=== PATIENT | male | born 1975 | race Caucasian/White ===

== ENCOUNTER 2022-07-29 06:51 | Emergency (ER) | payer BC ==
--- NOTE | 2022-07-29 07:28 | ERPHSYRPT ---
- History of Present Illness Time Seen by Provider: 07/29/22 07:23 Source: patient Exam Limitations: no limitations Physician History: pt had a fall about 3 weeks ago and thinks he may have strained the left groin area , but had no symptoms at that time. Then about a week ago began to note pain and swelling of the left testicle and scrotum. No fever, No abd pain, no u rinary symptoms, no discharge, No N or V. Tender swollen , indurated left scrotum with erythema. Abd soft nontender without peritoneal signs or masses. No palpable nodes. No palpable hernia. Discussed US with pt to rule out torsion and he agrees. Timing/Duration: day(s) Activites at Onset: none Quality: sharpness, throbbing Onset Location: groin, left testicle Pain Radiation: none Severity of Pain-Max: moderate Severity of Pain-Current: moderate Modifying Factors: Improves With: movement, walking Associated Symptoms: denies symptoms, No abdominal pain, No fever, No nausea, No vomiting, No polyuria Prior abdominal problems: none Sexual intercourse history: non-contributory Allergies/Adverse Reactions: No Known Drug Allergies Allergy (Unverified 08/04/16 14:54) Hx Tetanus, Diphtheria Vaccination/Date Given: Yes Hx Influenza Vaccination/Date Given: No Hx Pneumococcal Vaccination/Date Given: No - Past Medical History Pertinent Past Medical History: Yes Neurological History: No Pertinent History ENT History: No Pertinent History Cardiac History: Hypertension Respiratory History: No Pertinent History Endocrine Medical History: No Pertinent History Musculoskeletal History: Arthritis GI Medical History: No Pertinent History History: No Pertinent History Psycho-Social History: No Pertinent History Male Reproductive Disorders: No Pertinent History - Past Surgical History Past Surgical History: Yes Musculoskeletal: Orthopedic Surgery Other Surgical History: RT KNEE SCOPE - Social History Smoking Status: Never smoker Exposure to second hand smoke: Yes Drug Use: none Patient Lives Alone: Yes - Review of Systems Constitutional: No Fever, No Chills Eyes: No Symptoms Ears, Nose, & Throat: No Symptoms Respiratory: No Cough, No Dyspnea Cardiac: No Chest Pain, No Edema, No Syncope Abdominal/Gastrointestinal: No Abdominal Pain, No Nausea, No Vomiting, No Diarrhea Genitourinary Symptoms: Testicle Pain, No Dysuria, No Frequency, No Penile Discharge Musculoskeletal: No Back Pain, No Neck Pain Skin: No Rash Neurological: No Dizziness, No Focal Weakness, No Sensory Changes Psychological: No Symptoms Endocrine: No Symptoms All Other Systems: Reviewed and Negative - Nursing Vital Signs Nursing Vital Signs: Initial Vital Signs Temperature 96.7 F 07/29/22 07:21 Pulse Rate 108 H 07/29/22 07:21 Respiratory Rate 18 07/29/22 07:21 Blood Pressure 138/110 07/29/22 07:21 O2 Sat by Pulse Oximetry 95 07/29/22 07:21 Pain Scale Pain Intensity 2 - Physical Exam General Appearance: no apparent distress, alert Eye Exam: PERRL/EOMI Ears, Nose, Throat Exam: pharynx normal, moist mucous membranes Neck Exam: normal inspection, supple Respiratory Exam: normal breath sounds, lungs clear Cardiovascular Exam: regular rate/rhythm, No edema Gastrointestinal/Abdomen Exam: soft, No tenderness Rectal Exam: deferred Male Genital Exam: no hernia, epididymal tenderness, scrotum tenderness (L), scrotal swellling, No urethral discharge Back Exam: normal inspection, No CVA tenderness Extremity Exam: normal inspection, normal range of motion, No pedal edema Neurologic Exam: alert, oriented x 3, cooperative, sensation nml, No motor deficits Skin Exam: normal color, warm, dry, No rash - Course Nursing assessment & vital signs reviewed: Yes - Radiology Ultrasound Exam Left Scrotal Ultrasound: No Torsion/Nml Flow, Other (Left epidydimal swelling with hydrocoele - no hernia) Ordered Tests: Active Orders 24 hr Category Date Time Status TESTICLE [US] Stat Exams 07/29/22 07:18 Ordered CBC W DIFF Stat Lab 07/29/22 07:30 Completed CMP Stat Lab 07/29/22 07:30 Received CULTURE,URINE Stat Lab 07/29/22 07:21 Received Lactic Acid Stat Lab 07/29/22 07:17 Ordered UA W/RFX CULTURE Stat Lab 07/29/22 07:21 Results Medication Summary Discontinued Medications Generic Name Dose Route Start Last Admin Trade Name Freq PRN Reason Stop Dose Admin Ceftriaxone Sodium 500 mg 07/29/22 07:50 07/29/22 08:11 Ceftriaxone Sodium 500 Mg Vial IM 07/29/22 07:51 500 mg STAT ONE Administration Ceftriaxone Sodium Confirm 07/29/22 08:10 Ceftriaxone Sodium 500 Mg Vial Administered 07/29/22 08:11 Dose 500 mg .ROUTE .STK-MED ONE Insulin Human Regular 10 unit 07/29/22 08:43 07/29/22 08:49 Insulin Regular, Human 1 Unit SQ 07/29/22 08:44 10 unit STAT ONE Administration Insulin Human Regular Confirm 07/29/22 08:49 Insulin Regular, Human 1 Unit Administered 07/29/22 08:50 Dose 10 unit .ROUTE .STK-MED ONE Lidocaine HCl Confirm 07/29/22 08:10 Lidocaine Hcl 1% 20 Ml Mdv 20 Ml Ml Administered 07/29/22 08:11 Dose 3 ml .ROUTE .STK-MED ONE Lab/Rad Data: Laboratory Result Diagrams 07/29/22 07:30 07/29/22 07:30 Laboratory Results 07/29/22 07/29/22 07/29/22 Range/Units 08:00 07:30 07:30 WBC 10.9 H (4.0-10.5) x10^3/uL RBC 5.51 (4.1-5.6) x10^6/uL Hgb 14.9 (12.5-18.0) g/dL Hct 45.8 (42-50) % MCV 83.1 (78-100) fL MCH 27.0 (26-32) pg MCHC 32.5 (32-36) g/dL RDW 12.3 (11.5-14.0) % Plt Count 233 (150-450) x10^3/uL MPV 11.7 H (7.5-11.0) fL Gran % 63.3 (36.0-66.0) % Immature Gran % (Auto) 0.4 (0.00-0.4) % Nucleat RBC Rel Count 0.0 (0.00-0.1) % Eos # (Auto) 0.16 (0-0.5) x10^3/uL Immature Gran # (Auto) 0.04 H (0.00-0.03) x10^3u/L Absolute Lymphs (auto) 2.53 (1.0-4.6) x10^3/uL Absolute Monos (auto) 1.16 (0.0-1.3) x10^3/uL Absolute Nucleated RBC 0.00 (0.00-0.01) x10^3u/L Lymphocytes % 23.3 L (24.0-44.0) % Monocytes % 10.7 (0.0-12.0) % Eosinophils % 1.5 (0.00-5.0) % Basophils % 0.8 (0.0-0.4) % Absolute Granulocytes 6.90 (1.4-6.9) x10^3/uL Basophils # 0.09 (0-0.4) x10^3/uL Sodium 130 L (137-145) mmol/L Potassium 4.5 (3.5-5.1) mmol/L Chloride 94 L (98-107) mmol/L Carbon Dioxide 28 (22-30) mmol/L Anion Gap 13.2 (5-15) MEQ/L BUN 12 (9-20) mg/dL Creatinine 0.93 (0.66-1.25) mg/dL Estimated GFR > 60.0 ML/MIN Glucose 303 H (74-106) mg/dL Lactic Acid 1.5 (0.4-2.0) Calcium 8.8 (8.4-10.2) mg/dL Total Bilirubin 1.40 H (0.2-1.3) mg/dL AST 18 (17-59) U/L ALT 13 (0-50) U/L Alkaline Phosphatase 107 (38-126) U/L Serum Total Protein 8.1 (6.3-8.2) g/dL Albumin 4.2 (3.5-5.0) g/dL Urinalys Dipstick Clnc Urine Color (YELLOW) Urine Appearance (CLEAR) Urine pH (5-6) Ur Specific [place] (1.005-1.025) POC Urine Protein Conf (Negative) Urine Ketones (NEGATIVE) Urine Nitrite (NEGATIVE) Urine Bilirubin (NEGATIVE) Urine Urobilinogen (0-1) mg/dL Urine Leukocytes (NEGATIVE) Urine WBC (Auto) (0-5) /HPF Urine RBC (Auto) (0-2) /HPF U Hyaline Cast (Auto) (0-2) /LPF U Epithel Cells (Auto) (FEW) /HPF Urine Bacteria (Auto) (NEGATIVE) /HPF Urine RBC (0-5) Ld/ul Urine Mucus (Auto) (NEGATIVE) /HPF Ur Culture Indicated? Urine Glucose (NEGATIVE) mg/dL 07/29/ Range/Units 07:21 WBC (4.0-10.5) x10^3/uL RBC (4.1-5.6) x10^6/uL Hgb (12.5-18.0) g/dL Hct (42-50) % MCV (78-100) fL MCH (26-32) pg MCHC (32-36) g/dL RDW (11.5-14.0) % Plt Count (150-450) x10^3/uL MPV (7.5-11.0) fL Gran % (36.0-66.0) % Immature Gran % (Auto) (0.00-0.4) % Nucleat RBC Rel Count (0.00-0.1) % Eos # (Auto) (0-0.5) x10^3/uL Immature Gran # (Auto) (0.00-0.03) x10^3u/L Absolute Lymphs (auto) (1.0-4.6) x10^3/uL Absolute Monos (auto) (0.0-1.3) x10^3/uL Absolute Nucleated RBC (0.00-0.01) x10^3u/L Lymphocytes % (24.0-44.0) % Monocytes % (0.0-12.0) % Eosinophils % (0.00-5.0) % Basophils % (0.0-0.4) % Absolute Granulocytes (1.4-6.9) x10^3/uL Basophils # (0-0.4) x10^3/uL Sodium (137-145) mmol/L Potassium (3.5-5.1) mmol/L Chloride (98-107) mmol/L Carbon Dioxide (22-30) mmol/L Anion Gap (5-15) MEQ/L BUN (9-20) mg/dL Creatinine (0.66-1.25) mg/dL Estimated GFR ML/MIN Glucose (74-106) mg/dL Lactic Acid (0.4-2.0) Calcium (8.4-10.2) mg/dL Total Bilirubin (0.2-1.3) mg/dL AST (17-59) U/L ALT (0-50) U/L Alkaline Phosphatase (38-126) U/L Serum Total Protein (6.3-8.2) g/dL Albumin (3.5-5.0) g/dL Urinalys Dipstick Clnc MAIN LAB Urine Color YELLOW (YELLOW) Urine Appearance CLEAR (CLEAR) Urine pH 5.5 (5-6) Ur Specific [place] >=1.030 A (1.005-1.025) POC Urine Protein Conf 100 A (Negative) Urine Ketones SMALL-15 A (NEGATIVE) Urine Nitrite NEGATIVE (NEGATIVE) Urine Bilirubin MODERATE A (NEGATIVE) Urine Urobilinogen 1 A (0-1) mg/dL Urine Leukocytes NEGATIVE (NEGATIVE) Urine WBC (Auto) 11-15 A (0-5) /HPF Urine RBC (Auto) 6-10 A (0-2) /HPF U Hyaline Cast (Auto) 3-5 A (0-2) /LPF U Epithel Cells (Auto) RARE (FEW) /HPF Urine Bacteria (Auto) FEW A (NEGATIVE) /HPF Urine RBC MODERATE A (0-5) Ld/ul Urine Mucus (Auto) MANY A (NEGATIVE) /HPF Ur Culture Indicated? YES Urine Glucose >=1000 A (NEGATIVE) mg/dL - Progress Progress: improved, re-examined Progress Note: 07/29/22 07:46 pt declines pain meds at this time, while awaiting US eval. 07/29/22 09:02 pt relates that he knows of his Diabetes and was on larger doses of metformin to control and has these meds at home. He will take the lower dose of 500 daily since he previously tolerated this . He agrees to taking the antibiotics and getting them filled. He agrees to retest his glucose and return if still elevated. Counseled pt/family regarding: lab results, diagnosis, need for follow-up, rad results - Departure Departure Disposition: Home Clinical Impression: Epididymitis, left, Left hydrocele, Diabetes Condition: Good Critical Care Time: No Referrals: ARMANDO HARRY [Primary Care Provider] - Follow up/PCP as directed Instructions: Type 2 Diabetes, Epididymitis (DC) Additional Instructions: Follow up with your for Diabetes - call for appointment and follow-up - return meantime if any symptoms. Follow-up with your for blood pressure, return meantime if any symptoms. See your DrDemi to recheck infection down below and swelling. Take the antibiotics to help resolve this. return meantime if not improving , vomiting, fever or increased pain. You also have a hydrocoele down there which may contribute to the symptoms and can be followed up by your Dr. Recheck your Glucose at home to make sure its coming under control. Prescriptions: Levofloxacin [Levofloxacin 500 MG Tablet] 500 mg PO QAM #10 tablet Doxycycline Hyclate 100 mg [Vibramycin 100 MG] 100 mg PO BID #20 tab
[2022-07-29 07:35] LABS: Basophil (Absolute #) 0.09 x10^3/uL (0-0.4); Eosinophil % 1.5 % (0.00-5.0); Eosinophil (Absolute #) 0.16 x10^3/uL (0-0.5); Hematocrit 45.8 % (42-50); Hemoglobin 14.9 g/dL (12.5-18.0); Lymphocyte (Absolute #) 2.53 x10^3/uL (1.0-4.6); Lymphocytes % 23.3 % (24.0-44.0); Mean Cell Volume 83.1 fL (78-100); Mean Corpuscular Hgb Concent. 32.5 g/dL (32-36); Mean Platelet Volume 11.7 fL (7.5-11.0); Monocyte (Absolute #) 1.16 x10^3/uL (0.0-1.3); Monocytes % 10.7 % (0.0-12.0); Neutrophil % 63.3 % (36.0-66.0); Platelet Count 233 x10^3/uL (150-450); Red Blood Count 5.51 x10^6/uL (4.1-5.6); Red Cell Distribution Width 12.3 % (11.5-14.0); White Blood Count 10.9 x10^3/uL (4.0-10.5)
[2022-07-29 07:47] LABS: ALBUMIN 4.2 g/dL (3.5-5.0); ALKALINE PHOSPHATASE 107 U/L (38-126); ANION GAP 13.2 MEQ/L (5-15); BLOOD UREA NITROGEN 12 mg/dL (9-20); CHLORIDE 94 mmol/L (98-107); Calcium 8.8 mg/dL (8.4-10.2); Carbon Dioxide 28 mmol/L (22-30); Creatinine 1 0.93 mg/dL (0.66-1.25); EST GLOMERULAR FILTRATION RATE > 60.0 ML/MIN; Glucose 303 mg/dL (74-106); Potassium 4.5 mmol/L (3.5-5.1); SGOT/AST 18 U/L (17-59); SGPT/ALT 13 U/L (0-50); SODIUM 130 mmol/L (137-145); Total Protein 8.1 g/dL (6.3-8.2)
[2022-07-29] MEDS ORDERED: Rocephin 500 MG INJ IM ONE (07:50)
[2022-07-29 07:53] LABS: Appearance CLEAR (CLEAR); Bilirubin MODERATE (NEGATIVE); Dipstick done @ ? MAIN LAB; Glucose >=1000 mg/dL (NEGATIVE); Ketones SMALL-15 (NEGATIVE); Nitrite NEGATIVE (NEGATIVE); Ph 5.5 (5-6); Protein,Urine Dip 100 (Negative); RBC MODERATE Ery/ul (0-5); Specific Gravity >=1.030 (1.005-1.025); Urobilinogen 1 mg/dL (0-1)
[2022-07-29 07:59] LABS: Bacteria FEW /HPF (NEGATIVE); Epithelial Cells RARE /HPF (FEW); Mucus MANY /HPF (NEGATIVE)
[2022-07-29 08:01] LABS: Urine Cultured Indicated? YES
[2022-07-29] MEDS ORDERED: Rocephin 500 MG INJ ONE (08:10)
[2022-07-29] MEDS ORDERED: XYLOCAINE 1% HCL 20 ML MDV ONE (08:10)
--- NOTE | 2022-07-29 08:37 | XRAY ---
Indication: Left scrotal pain and swelling. Two-dimensional testicular sonogram performed. Comparison: None Both testicles are homogeneous echogenicity with normal color perfusion. Right testicle measures 4.7 x 2.5 x 2.7 cm and the left measures 4.7 x 2.4 x 3.0 cm. Asymmetrically prominent heterogeneous left epididymis measuring 1.6 x 1.2 x 1.5 cm with increased color Doppler flow favoring epididymitis. Tiny left hydrocele presumed reactive. Right epididymis sonographically unremarkable. No suspicious extratesticular mass. Impression: Prominent heterogeneous left epididymis with increased color Doppler flow. Rule out epididymitis. Remaining testicle sonogram is negative.
[2022-07-29] MEDS ORDERED: HUMULIN R SQ ONE (08:43)
[2022-07-29] MEDS ORDERED: HUMULIN R ONE (08:49)
[2022-07-29 08:58] VITALS: O2SAT 94
[2022-07-29 09:03] VITALS: BP 140/100; PULSE 80
== END 2022-07-29 09:25 | disposition home or self-care (01) ==
LOC: ED 06:51
DX: N45.1 Epididymitis (principal); N43.3 Hydrocele, unspecified; E11.9 Type 2 diabetes mellitus without complications; N50.812 Left testicular pain; I10 Essential (primary) hypertension; Z79.84 Long term (current) use of oral hypoglycemic drugs
CPT/HCPCS: 36415; 76870; 80053; 81015; 83605; 85025; 87086; 96372; 99283; J0696; J1815

== ENCOUNTER 2024-12-18 09:53 | Emergency (ER) | payer BC ==
[2024-12-18 10:12] VITALS: RESP 18; TEMP 97.2
[2024-12-18 11:05] VITALS: O2SAT 95
--- NOTE | 2024-12-18 11:27 | ERPHSYRPT ---
- History of Present Illness Source: patient Exam Limitations: no limitations Patient Subjective Stated Complaint: pt here for left groin area for a week now, no injury, he states he has hx of abscess before Triage Nursing Assessment: pt alert, walked in, resp easy, skin w/d/p, no fever, he has swelling and tenderness to left groin, no drainage noted Physician History: Patient has a firm abscess type lesion at the base of his scrotum on the left. Is probably 4 to 5 cm in length and about that wide. It is very firm to the touch and tender. He is never had problems like this before. He does not have any rectal pain. He has no dysuria. He has no fever or chills. He does not have any hernias that he knows of. He does not have any testicular pain. He has no nausea vomiting or other systemic symptoms. Timing/Duration: yesterday Allergies/Adverse Reactions: No Known Drug Allergies Allergy (Verified 12/18/24 10:00) Home Medications: Unobtainable 12/18/24 [History] Hx Tetanus, Diphtheria Vaccination/Date Given: Yes Hx Influenza Vaccination/Date Given: No Hx Pneumococcal Vaccination/Date Given: No Immunizations Up to Date: Yes Travel Risk - International Travel Have you traveled outside of the country in past 3 weeks: No - Emerging Infectious Disease Are you exhibiting symptoms associated with any current EIDs: No - Past Medical History Pertinent Past Medical History: Yes Neurological History: No Pertinent History ENT History: No Pertinent History Cardiac History: Hypertension Respiratory History: No Pertinent History Endocrine Medical History: No Pertinent History Musculoskeletal History: Arthritis GI Medical History: No Pertinent History History: No Pertinent History Psycho-Social History: No Pertinent History Male Reproductive Disorders: No Pertinent History - Past Surgical History Past Surgical History: Yes Musculoskeletal: Orthopedic Surgery Other Surgical History: RT KNEE SCOPE - Social History Smoking Status: Former smoker Exposure to second hand smoke: Yes Drug Use: none - Social Determinants of Health Will the patient participate in the screening: Declined to provide - Review of Systems Constitutional: No Symptoms Eyes: No Symptoms Ears, Nose, & Throat: Nose Pain Respiratory: No Symptoms Genitourinary Symptoms: No Symptoms Musculoskeletal: No Symptoms All Other Systems: Reviewed and Negative - Nursing Vital Signs Nursing Vital Signs: Initial Vital Signs Blood Pressure 176/110 12/18/24 10:02 O2 Sat by Pulse Oximetry 94 L 12/18/24 10:02 Pain Scale Pain Intensity 7 - Physical Exam General Appearance: no apparent distress Eye Exam: PERRL/EOMI Ears, Nose, Throat Exam: normal ENT inspection Neck Exam: normal inspection Male Genital Exam: scrotum tenderness (L) (Patient has very tender large swollen mass at the base of his left scrotum.), No testicular tenderness (R) Back Exam: normal inspection Extremity Exam: normal inspection Neurologic Exam: alert, oriented x 3 Skin Exam: normal color, warm SpO2: 95 - Course Nursing assessment & vital signs reviewed: Yes Ordered Tests: Active Orders 24 hr Category Date Time Status PELVIS WITH CONTRAST [CT] Stat Exams 12/18/24 11:45 Completed TESTICLE [US] Stat Exams 12/18/24 10:11 Completed CBC W DIFF Stat Lab 12/18/24 11:25 Completed CMP Stat Lab 12/18/24 11:25 Completed UA W/RFX UR CULTURE Stat Lab 12/18/24 12:00 Completed Lab/Rad Data: Laboratory Result Diagrams 12/18/24 11:25 12/18/24 11:25 Laboratory Results 12/18/24 12/18/24 12/18/24 Range/Units 12:00 11:25 11:25 WBC 9.7 H (4.23-9.07) x10^3/uL RBC 5.23 (4.63-6.08) x10^6/uL Hgb 14.5 (13.7-17.5) g/dL Hct 43.3 (40.1-51.0) % MCV 82.8 (79.0-92.2) fL MCH 27.7 (25.7-32.2) pg MCHC 33.5 (32.3-36.5) g/dL RDW 12.0 (11.6-14.4) % Plt Count 191 (163-337) x10^3/uL MPV 11.6 (9.4-12.4) fL Gran % 68.2 H (34.0-67.9) % Immature Gran % (Auto) 0.4 (0.001-0.429) % Nucleat RBC Rel Count 0.0 (0.00-0.2) % Eos # (Auto) 0.16 (0.04-0.54) x10^3/uL Immature Gran # (Auto) 0.04 H (0.001-0.031) x10^3u/L Absolute Lymphs (auto) 1.82 (1.32-3.57) x10^3/uL Absolute Monos (auto) 1.01 H (0.30-0.82) x10^3/uL Absolute Nucleated RBC 0.00 (0.00-0.012) x10^3u/L Lymphocytes % 18.7 L (21.8-53.1) % Monocytes % 10.4 (5.3-12.2) % Eosinophils % 1.6 (0.8-7.0) % Basophils % 0.7 (0.2-1.2) % Absolute Granulocytes 6.62 H (1.78-5.38) x10^3/uL Basophils # 0.07 (0.01-0.08) x10^3/uL Sodium 134 L (135-145) mmol/L Potassium 3.9 (3.5-5.1) mmol/L Chloride 99 (98-107) mmol/L Carbon Dioxide 24 (22-30) mmol/L Anion Gap 14.9 (5-15) MEQ/L BUN 15 (9-20) mg/dL Creatinine 0.67 (0.66-1.25) mg/dL Estimated GFR 113.8 ML/MIN Glucose 283 H (74-106) mg/dL Calcium 8.5 (8.4-10.2) mg/dL Total Bilirubin 1.20 (0.2-1.3) mg/dL AST 27 (17-59) U/L ALT 15 (0-50) U/L Alkaline Phosphatase 82 (38-126) U/L Serum Total Protein 7.4 (6.3-8.2) g/dL Albumin 4.1 (3.5-5.0) g/dL Urine Color Yellow (Yellow) Urine Appearance Clear (Clear) Urine pH 6.0 (4.6-8.0) Ur Specific [place] >=1.030 A (1.005-1.030) Urine Protein Negative (Negative) Urine Glucose (UA) >=1000 A (Negative) mg/dL Urine Ketones Negative (Negative) Urine Blood Moderate A (Negative) Urine Nitrite Negative (Negative) Urine Bilirubin Negative (Negative) Urine Urobilinogen 1.0 A (0.2) mg/dL Ur Leukocyte Esterase Negative (Negative) U Hyaline Cast (Auto) NONE SEEN (0-2) /LPF Urine Microscopic RBC 11-20 A (0-5) /HPF Urine Microscopic WBC 0-2 (0-5) /HPF Ur Epithelial Cells None Seen (None Seen) /HPF Urine Bacteria None Seen (None Seen) /HPF Urine Culture Reflexed NO (NO) - Progress Progress: unchanged Progress Note: Patient was stable throughout stay. I got a ultrasound which did not show much. I did then got a CT which showed an abscess. At this time just going to start the patient on some Augmentin. I want to have him follow-up with general surgeons. He is also instructed to use heating pad to the area frequently. 12/18/24 13:58 - Departure Departure Disposition: Home Clinical Impression: Abscess, groin Condition: Stable Critical Care Time: No Referrals: SANJEEV OSBORNE [ACTIVE STAFF] - Follow up/PCP as directed
[2024-12-18 11:29] LABS: Absolute Neutrophil Ct (ANC) 6.62 x10^3/uL (1.78-5.38); BASOPHIL % 0.7 % (0.2-1.2); Basophil (Absolute #) 0.07 x10^3/uL (0.01-0.08); Eosinophil % 1.6 % (0.8-7.0); Eosinophil (Absolute #) 0.16 x10^3/uL (0.04-0.54); Hematocrit 43.3 % (40.1-51.0); Hemoglobin 14.5 g/dL (13.7-17.5); IMMATURE GRAN # 0.04 x10^3u/L (0.001-0.031); IMMATURE GRAN % 0.4 % (0.001-0.429); Lymphocyte (Absolute #) 1.82 x10^3/uL (1.32-3.57); Lymphocytes % 18.7 % (21.8-53.1); Mean Cell Volume 82.8 fL (79.0-92.2); Mean Corpuscular Hemoglobin 27.7 pg (25.7-32.2); Mean Corpuscular Hgb Concent. 33.5 g/dL (32.3-36.5); Mean Platelet Volume 11.6 fL (9.4-12.4); Monocyte (Absolute #) 1.01 x10^3/uL (0.30-0.82); Monocytes % 10.4 % (5.3-12.2); Neutrophil % 68.2 % (34.0-67.9); Platelet Count 191 x10^3/uL (163-337); Red Blood Count 5.23 x10^6/uL (4.63-6.08); White Blood Count 9.7 x10^3/uL (4.23-9.07)
--- NOTE | 2024-12-18 11:36 | XRAY ---
Indication: Abscess. Two-dimensional testicular sonogram performed. Comparison: July 29, 2022 Again both testicles are homogeneous in echogenicity with normal color perfusion. Right testicle measures 4.6 x 2.1 x 3.3 cm and left measures 4.3 x 2.2 x 3.0 cm. Left and right epididymis negative for focal solid/cystic mass. Tiny nonspecific left hydrocele. No suspicious extratesticular mass or fluid collection. Impression: Tiny nonspecific left hydrocele. Remaining testicular sonogram is negative.
[2024-12-18 11:46] LABS: ALBUMIN 4.1 g/dL (3.5-5.0); ANION GAP 14.9 MEQ/L (5-15); BILIRUBIN,TOTAL 1.2 mg/dL (0.2-1.3); Calcium 8.5 mg/dL (8.4-10.2); Creatinine 1 0.67 mg/dL (0.66-1.25); EST GLOMERULAR FILTRATION RATE 113.8 ML/MIN; Potassium 3.9 mmol/L (3.5-5.1); Total Protein 7.4 g/dL (6.3-8.2)
[2024-12-18 12:08] LABS: Appearance Clear (Clear); Bacteria None Seen /HPF (None Seen); Bilirubin Negative (Negative); Blood Moderate (Negative); Epithelial Cells None Seen /HPF (None Seen); Glucose, Urine >=1000 mg/dL (Negative); Hyaline Casts NONE SEEN /LPF (0-2); Ketones Negative (Negative); Leukocyte Esterase Negative (Negative); Nitrite Negative (Negative); Protein,Urine Dip Negative (Negative); Specific Gravity >=1.030 (1.005-1.030); WBC 0-2 /HPF (0-5)
--- NOTE | 2024-12-18 13:33 | XRAY ---
Indication: Mass base left scrotum. Multiple contiguous images obtained through the pelvis only using 80 cc Isovue 370 contrast. Comparison: None Left perineum demonstrates moderate cutaneous/subcutaneous induration presumed inflammatory/infectious with a 3.2 x 1.6 cm fluid collection, possible abscess. No soft tissue emphysema. Left coin demonstrates a few prominent lymph nodes, largest 1.5 x 2.0 cm presumed reactive. Visualized pelvis demonstrates incompletely visualized left mid abdomen mesenteric stranding with a few tiny mesenteric nodes favoring mesenteric adenitis. Visualized bowel loops appear nonobstructed with incidental minimal sigmoid diverticulosis. Visualized inferior kidneys, ureters, bladder, and aorta are unremarkable. No free fluid/air. Impression: 1. Left perineum soft tissue induration presumed inflammatory/infectious with small abscess as detailed. Reactive left inguinal lymph nodes. 2. Incidental left mid abdomen mesenteric adenitis and sigmoid diverticulosis.
[2024-12-18 14:04] VITALS: BP 146/93; PULSE 66
== END 2024-12-18 14:19 | disposition home or self-care (01) ==
LOC: ED 09:53
DX: L02.214 Cutaneous abscess of groin (principal); I10 Essential (primary) hypertension; Z79.899 Other long term (current) drug therapy
CPT/HCPCS: 36415; 72193; 76870; 80053; 81001; 85025; 99284; 99285